=== PATIENT | female | born 1935 | race Caucasian/White ===

== ENCOUNTER 2016-12-26 13:46 | Emergency (ER) | payer MEDICARE ==
[~2016-12-26] VITALS: Wt 49.9 kg
[~2016-12-26 13:46] MED LIST: ALLOPURINOL100 MG PO; ATIVAN0.5 MG PO; CARVEDILOL6.25 MG PO; CIPRO500 MG PO; CLOPIDOGREL75 MG PO; CLOTRIMAZOLE TR10 MG PO; COUMADIN2.5 M1 PO; FAMOTIDINE20 MG PO; LANOXIN125 MCG/2. PO; LASIX20 MG PO; LISINOPRIL2.5 MG PO; MACROBID100 M1 PO; METOCLOPRAMIDE5 MG PO; METOPROLOL25 MG PO; MULTIPLE VITAMI1 TAB PO; NITROSTAT0.4 MG SL; OMEPRAZOLE40 MG PO; PLAVIX75 MG PO; RANEXA500 MG PO; SENNA-GEN8.6 MG PO; SYNTHROID,LEVO50 MCG PO; TRAMADOL HCL50 MG PO; TRAZODONE50 MG PO; VITAMIN D1000 IU PO
[2016-12-26 13:53] VITALS: BP 101/63
[2016-12-26 14:19] LABS: HEMATOCRIT 34.1 % (37.0-47.0); HEMOGLOBIN 10.9 g/dl (12.0-16.0); MEAN CELL VOLUME 110.7 fl (81.0-99.0); MEAN CORPUSCULAR HGB 35.4 pg (27.0-31.0); MEAN PLATELET VOLUME 10.6 fl (9.6-12.3); PLATELET COUNT AUTOMATED 73 10*3/uL (130-400); RED BLOOD COUNT 3.08 10*6/uL (4.10-5.10); WHITE BLOOD COUNT 2.5 10*3/uL (4.8-10.8)
[2016-12-26 14:36] LABS: ALBUMIN 3.1 gm/dl (3.1-4.5); POTASSIUM 3.6 mmol/L (3.5-5.1); TOTAL PROTEIN 8.7 gm/dL (6.4-8.2)
[2016-12-26 14:39] LABS: BASOPHIL # 0.1 10*3/uL (0-0.1); BASOPHILS 2 % (0-1); EOSINOPHILS 1 % (1-4); LYMPHOCYTE # 0.7 10*3/uL (1.3-4.4); MONOCYTE # 0.1 10*3/uL (0.1-1.0); NEUTROPHIL # 1.6 10*3/uL (2.3-7.9); NEUTROPHILS 65 % (47-73); TOTAL CELLS COUNTED 100 #CELLS
[2016-12-26 14:41] LABS: INTERNATIONAL NORM RATIO 2.3 (2.0-3.5); PROTHROMBIN TIME 26.1 SECONDS (9.0-12.4)
[2016-12-26 14:45] LABS: PLATELET SUFFICIENCY LOW (NORMAL)
[2016-12-26 14:56] LABS: BILIRUBIN NEGATIVE (NEGATIVE); BLOOD NEGATIVE (NEGATIVE); CLARITY SL CLOUDY (CLEAR); COLOR YELLOW (YELLOW); GLUCOSE NEGATIVE (NEGATIVE); KETONE NEGATIVE (NEGATIVE); LEUKO ESTERASE 1+ (NEGATIVE); NITRITE NEGATIVE (NEGATIVE); PH 5.5 (5.0-9.0); PROTEIN NEGATIVE (NEGATIVE); SPECIFIC GRAVITY 1.015 (1.005-1.030); UROBILINOGEN 0.2 E.U./dl (0.2-1.0)
[2016-12-26 15:08] LABS: BACTERIA 2+; RBC 0-2 rbc/hpf (0-2); URINE REFLEX COMMENT YES (NO); WBC 16-20 wbc/hpf (0-5)
== END 2016-12-26 15:33 | disposition home or self-care (01) ==
LOC: ED 13:46
PROVIDERS: Student in an Organized Health Care Education/Training Program
DX: S00.01XA Abrasion of scalp, initial encounter (principal); R82.71 Bacteriuria; Z88.0 Allergy status to penicillin; Z88.1 Allergy status to other antibiotic agents; Z88.2 Allergy status to sulfonamides; Z88.6 Allergy status to analgesic agent; Z88.8 Allergy status to other drugs, medicaments and biological substances; Z79.01 Long term (current) use of anticoagulants; Z90.49 Acquired absence of other specified parts of digestive tract; Z79.899 Other long term (current) drug therapy; W01.0XXA Fall on same level from slipping, tripping and stumbling without subsequent striking against object, initial encounter; Y93.89 Activity, other specified; Y92.129 Unspecified place in nursing home as the place of occurrence of the external cause; Y99.9 Unspecified external cause status

== ENCOUNTER 2017-01-04 05:09 | Emergency (ER) | payer MEDICARE ==
[~2017-01-04] VITALS: Ht 165.1 cm; Wt 49.9 kg
[2017-01-04] MEDS ORDERED: ATIVAN1 MG PO (05:17)
[2017-01-04] MEDS ORDERED: HALDOL0.5 MG PO (05:17)
[2017-01-04] MEDS ORDERED: MORPHINE SULFAT10 MG RC (05:18)
[2017-01-04] MEDS ORDERED: HYDROXYZINE HCL25 MG PO (05:19)
[2017-01-04] MEDS ORDERED: COREG3.125 MG PO (05:19)
[2017-01-04] MEDS ORDERED: TYLENOL325 M1 PO (05:20)
[2017-01-04] MEDS ORDERED: ARICEPT10 M1 PO (05:20)
[2017-01-04] MEDS ORDERED: HALOPERIDOL1 MG PO (05:21)
[2017-01-04] MEDS ORDERED: QUALITY CHOICE PO (05:21)
[2017-01-04] MEDS ORDERED: NITROSTAT0.4 MG SL (05:22)
[2017-01-04 05:30] VITALS: BP 101/58
[2017-01-04 05:45] LABS: HEMATOCRIT 22.1 % (37.0-47.0); HEMOGLOBIN 7.1 g/dl (12.0-16.0); MEAN CELL VOLUME 111.1 fl (81.0-99.0); MEAN CORPUSCULAR HGB 35.7 pg (27.0-31.0); MEAN CORPUSCULAR HGB CONC 32.1 g/dl (33.0-37.0); MEAN PLATELET VOLUME 10.3 fl (9.6-12.3); PLATELET COUNT AUTOMATED 70 10*3/uL (130-400); RED BLOOD COUNT 1.99 10*6/uL (4.10-5.10); RED CELL DISTRI WIDTH 14.6 % (0-14.5); WHITE BLOOD COUNT 2.9 10*3/uL (4.8-10.8)
[2017-01-04 05:58] LABS: INTERNATIONAL NORM RATIO 1.7 (2.0-3.5); PROTHROMBIN TIME 18.2 SECONDS (9.0-12.4)
[2017-01-04 06:05] LABS: EOSINOPHIL # 0.1 10*3/uL (0-0.4); EOSINOPHILS 3 % (1-4); LYMPHOCYTE # 0.5 10*3/uL (1.3-4.4); MONOCYTE # 0.3 10*3/uL (0.1-1.0); NEUTROPHILS 68 % (47-73); TOTAL CELLS COUNTED 100 #CELLS
[2017-01-04 06:06] LABS: PLATELET SUFFICIENCY LOW (NORMAL); POLYCHROMASIA SLIGHT
== END 2017-01-04 06:43 ==
LOC: ED 05:09
PROVIDERS: Emergency Medicine
DX: S70.11XA Contusion of right thigh, initial encounter (principal); F03.90 Unspecified dementia, unspecified severity, without behavioral disturbance, psychotic disturbance, mood disturbance, and anxiety; I50.9 Heart failure, unspecified; Z88.0 Allergy status to penicillin; Z88.6 Allergy status to analgesic agent; Z88.1 Allergy status to other antibiotic agents; Z88.8 Allergy status to other drugs, medicaments and biological substances; Z79.899 Other long term (current) drug therapy; X58.XXXA Exposure to other specified factors, initial encounter; Y93.89 Activity, other specified; Y92.89 Other specified places as the place of occurrence of the external cause; Y99.8 Other external cause status